=== PATIENT | male | born 1930 | race Caucasian/White ===

== ENCOUNTER 2016-09-30 06:27 | Day surgery (SDC) | payer MEDICARE, BC ==
[2016-09-30] MEDS ORDERED: Lidocaine 1% with EPINEPHrine 1:100,000 50 ML MDV ONE (06:38)
[2016-09-30] MEDS ORDERED: Dextrose 5%-Lactated Ringers 1,000 ML IV SCH (07:15)
[2016-09-30] MEDS ORDERED: Lidocaine 0.5% 50 ML SDV ONE (07:39)
[2016-09-30] MEDS ORDERED: Propofol 200 MG/20 ML SDV ONE (07:39)
[2016-09-30] MEDS ORDERED: fentaNYL 100 MCG/2 ML SDV ONE (07:39)
[2016-09-30] MEDS ORDERED: Midazolam 1 MG/ML 2 ML SDV ONE (07:39)
[2016-09-30] MEDS ORDERED: ceFAZolin 2 GM in Premix Bag 1 BAG IV ONE (07:45)
[2016-09-30] MEDS ORDERED: Ketorolac 60 MG/2 ML SDV ONE (08:34)
[2016-09-30 10:30] VITALS: BP 137/77
--- NOTE | 2016-10-07 10:52 | OR ---
DATE OF PROCEDURE: 09/30/2016 PREOPERATIVE DIAGNOSIS: Right carpal tunnel syndrome. POSTOPERATIVE DIAGNOSIS: Right carpal tunnel syndrome. OPERATIVE PROCEDURE: Right carpal tunnel release ([id number]). ANESTHESIA: IV block plus sedation. INDICATIONS FOR PROCEDURE: An 86-year-old with bilateral carpal tunnel syndrome, who presented with a left carpal tunnel release, now is to undergo the release on the right side. Potential risks of the procedure including bleeding, infection, injury to the median nerve and/or its branches, possible incomplete relief of symptoms were all gone over, and the patient wishes to proceed. DETAILS OF PROCEDURE: The patient was taken to the operating room and placed in supine position. An IV block was placed, affecting the right forearm and hand, after which those areas were prepped and draped, a standard carpal tunnel incision was made and carried down through the skin and subcutaneous tissue. The transverse carpal ligament was then divided for its length. This was quite thick and did retract under considerable tension upon its division. Care was taken to maintain an ulnar orientation with regard to the underlying median nerve. The median nerve, after completion of the division of the ligament, was noted to be intact. The subcutaneous tissue was then approximated with some 4-0 Vicryl stitch, and the skin with 5-0 Prolene stitch. Dressing was applied. The patient was taken to the recovery room in satisfactory condition. Jerry Ybarra MD /[id number]
== END 2016-09-30 10:30 | disposition home or self-care (01) ==
LOC: JP.SDS 06:27
PROVIDERS: ATTEND Surgery
DX: G56.01 Carpal tunnel syndrome, right upper limb (principal); Z88.0 Allergy status to penicillin; Z91.013 Allergy to seafood; N18.9 Chronic kidney disease, unspecified; Z95.1 Presence of aortocoronary bypass graft
CPT/HCPCS: 64721; J0690; J1885; J2250; J2704; J3010

== ENCOUNTER 2017-08-09 22:06 | Emergency (ER) | payer MEDICARE, BC ==
[2017-08-09] MEDS ORDERED: Aspirin 81 MG Tab.Chew PO ONE (22:49)
[2017-08-10 02:06] VITALS: BP 158/67
--- NOTE | 2017-08-10 02:07 | EDM.PDOC ---
ED HPI GENERAL MEDICAL PROBLEM - General Chief Complaint: Chest Pain Stated Complaint: CHEST PAIN Time Seen by Provider: 08/09/17 22:40 Source of Information: Reports: Patient, Family History Limitations: Reports: No Limitations - History of Present Illness INITIAL COMMENTS - FREE TEXT/NARRATIVE: PT ARRIVED WITH PAIN IN THE CHEST THAT STARTED JUST BEFORE SUPPER AND CONTINUED THROUGH OUT THE EVENING.tHE PAIN WAS IN THE 5 RANGE.hE WAS NOT NAUSEATED AND HE WAS NOT SWEATY OF SOB. Onset: Today Duration: Hour(s): Location: Reports: Chest Associated Symptoms: Reports: Chest Pain, Other (PT HAD VERY LITTLE PAIN ABOUT 5 MINUTES AFTER ARRIVAL. ) chest pain Pain Score (Numeric/FACES): 2 - Related Data Allergies Allergy/AdvReac Type Severity Reaction Status Date / Time Penicillins Allergy Rash Verified 08/09/17 22:22 fish meal Allergy Other Uncoded 08/09/17 22:22 Home Meds: Home Meds Acyclovir [Zovirax 5% Oint] 30 gm TP ASDIRECTED PRN 09/21/13 [History] Aspirin [Lite Coat Aspirin] 81 mg PO DAILY 09/21/13 [History] Cyanocobalamin (Vitamin B-12) [Vitamin B-12] 1,000 mcg IM ASDIRECTED 09/21/13 [ History] Dutasteride [Avodart] 0.5 mg PO DAILY 09/21/13 [History] Levothyroxine [Synthroid] 25 mcg PO ACBRK 09/21/13 [History] Metoprolol Succinate [Toprol XL] 25 mg PO DAILY 09/21/13 [History] atorvaSTATin [Lipitor] 40 mg PO BEDTIME 09/21/13 [History] Losartan [Cozaar] 100 mg PO DAILY 05/14/16 [History] Nitroglycerin [Nitrostat] 0.4 mg SL ASDIRECTED 05/14/16 [History] Gabapentin [Gabapentin] 600 mg PO BID 09/28/16 [History] Meloxicam [Meloxicam] 7.5 mg PO DAILY 09/28/16 [History] Tamsulosin HCl [Tamsulosin HCl] 0.4 mg PO DAILY 09/28/16 [History] Past Medical History HEENT History: Reports: Cataract, Impaired Vision Cardiovascular History: Reports: Hypertension, [place], Stents Gastrointestinal History: Reports: Hiatal Hernia Genitourinary History: Reports: BPH Musculoskeletal History: Reports: Arthritis Endocrine/Metabolic History: Reports: Other (See Below) Other Endocrine/Metabolic History: thyroid disease Oncologic (Cancer) History: Reports: Non-Hodgkin's Lymphoma Dermatologic History: Reports: Other (See Below) Other Dermatologic History: Patient has always had flushed/red cheeks - Infectious Disease History Infectious Disease History: Reports: Chicken Pox, Measles, Mumps, Shingles - Past Surgical History HEENT Surgical History: Reports: Cataract Surgery Cardiovascular Surgical History: Reports: Coronary Artery Bypass, Coronary Artery Stent, Other (See Below) Other Cardiovascular Surgeries/Procedures: x4 cardiac stents GI Surgical History: Reports: Hernia Repair/Other Musculoskeletal Surgical History: Reports: Knee Replacement, Other (See Below) Other Musculoskeletal Surgeries/Procedures:: right knee replacement Social & Family History - Tobacco Use Smoking Status *Q: Never Smoker Second Hand Smoke Exposure: No - Caffeine Use Caffeine Use: Reports: Coffee, Soda - Alcohol Use Days Per Week of Alcohol Use: 0 - Recreational Drug Use Recreational Drug Use: No ED ROS GENERAL - Review of Systems Review Of Systems: See Below Constitutional: Reports: No Symptoms HEENT: Reports: No Symptoms Respiratory: Reports: No Symptoms Cardiovascular: Reports: Chest Pain, Other ( pT HAD PAIN IN THE MIDDLE OSF HIS CHEST. ) Endocrine: Reports: No Symptoms GI/Abdominal: Reports: No Symptoms : Reports: No Symptoms Musculoskeletal: Reports: No Symptoms Skin: Reports: No Symptoms Neurological: Reports: No Symptoms ED EXAM, GENERAL - Physical Exam Exam: See Below Free Text/Narrative:: pT ARRIVED WITH ACUTE PAIN IN THE MID CHEST AREA. tHIS DID LAST ABOUT 4-5 HOURS. Exam Limited By: No Limitations General Appearance: Alert, Anxious Ears: Normal TMs Nose: Normal Inspection Throat/Mouth: Normal Inspection Head: Atraumatic Neck: Normal Inspection Respiratory/Chest: No Respiratory Distress Cardiovascular: Regular Rate, Rhythm, Other (PT HAD PAIN ACCROSS THE CHEST. ) GI/Abdominal: Soft, Non-Tender (Male) Exam: Deferred Rectal (Males) Exam: Deferred Back Exam: Normal Inspection Extremities: Normal Capillary Refill Neurological: Alert, Oriented, Normal Cognition Course - Vital Signs Last Recorded V/S: Last Vital Signs Temp 36.7 C 08/09/17 22:39 Pulse 48 L 08/10/17 02:05 Resp 14 08/10/17 00:04 BP 158/67 H 08/10/17 02:05 Pulse Ox 93 L 08/10/17 00:04 - Orders/Labs/Meds Orders: Active Orders 24 hr Category Date Time Status EKG Documentation Completion [RC] ASDIRECTED Care 08/09/17 22:30 Active Chest 1V Frontal [CR] Stat Exams 08/09/17 22:31 Taken EKG 12 Lead [EK] Routine Ther 08/09/17 22:30 Ordered Labs: Laboratory Tests 08/09/17 08/09/17 08/09/17 Range/Units 22:45 22:45 22:45 WBC 4.8 (4.5-11.0) K/uL RBC 4.22 L (4.30-5.90) M/uL Hgb 13.4 D (12.0-15.0) g/dL Hct 41.3 (40.0-54.0) % MCV 98 (80-98) fL MCH 32 H (27-31) pg MCHC 32 (32-36) % Plt Count 109 L (150-400) K/uL Neut % (Auto) 63 (36-66) % Lymph % (Auto) 24 (24-44) % Carter % (Auto) 8 H (2-6) % Eos % (Auto) 5 H (2-4) % Baso % (Auto) 1 (0-1) % Sodium 147 (140-148) mmol/L Potassium 4.4 (3.6-5.2) mmol/L Chloride 111 H (100-108) mmol/L Carbon Dioxide 27 (21-32) mmol/L Anion Gap 13.4 (5.0-14.0) mmol/L BUN 20 H (7-18) mg/dL Creatinine 1.8 H (0.8-1.3) mg/dL Est Cr Clr Drug Dosing 34.52 mL/min Estimated GFR (MDRD) 36 L (>60) Glucose 119 H (74-106) mg/dL Calcium 8.2 L (8.5-10.1) mg/dL Total Bilirubin 0.7 (0.2-1.0) mg/dL AST 24 (15-37) U/L ALT 37 (12-78) U/L Alkaline Phosphatase 98 (46-116) U/L Creatine Kinase 239 (39-308) U/L Troponin I 0.026 (0.000-0.056) ng/mL Total Protein 5.6 L (6.4-8.2) g/dL Albumin 3.2 L (3.4-5.0) g/dL Globulin 2.4 (2.3-3.5) g/dL Albumin/Globulin Ratio 1.3 (1.2-2.2) Urine Color Urine Appearance Urine pH (4.5-8.0) Ur Specific [place] (1.008-1.030) Urine Protein (NEGATIVE) mg/dL Urine Glucose (UA) (NEGATIVE) mg/dL Urine Ketones (NEGATIVE) mg/dL Urine Occult Blood (NEGATIVE) Urine Nitrite (NEGAITVE) Urine Bilirubin (NEGATIVE) Urine Urobilinogen (NORMAL) mg/dL Ur Leukocyte Esterase (NEGATIVE) Urine RBC (0-5) Urine WBC (0-5) Ur Epithelial Cells Amorphous Sediment Urine Bacteria Urine Mucus 08/09/17 08/10/17 Range/Units 22:50 01:34 WBC (4.5-11.0) K/uL RBC (4.30-5.90) M/uL Hgb (12.0-15.0) g/dL Hct (40.0-54.0) % MCV (80-98) fL MCH (27-31) pg MCHC (32-36) % Plt Count (150-400) K/uL Neut % (Auto) (36-66) % Lymph % (Auto) (24-44) % Carter % (Auto) (2-6) % Eos % (Auto) (2-4) % Baso % (Auto) (0-1) % Sodium (140-148) mmol/L Potassium (3.6-5.2) mmol/L Chloride (100-108) mmol/L Carbon Dioxide (21-32) mmol/L Anion Gap (5.0-14.0) mmol/L BUN (7-18) mg/dL Creatinine (0.8-1.3) mg/dL Est Cr Clr Drug Dosing mL/min Estimated GFR (MDRD) (>60) Glucose (74-106) mg/dL Calcium (8.5-10.1) mg/dL Total Bilirubin (0.2-1.0) mg/dL AST (15-37) U/L ALT (12-78) U/L Alkaline Phosphatase (46-116) U/L Creatine Kinase (39-308) U/L Troponin I 0.026 (0.000-0.056) ng/mL Total Protein (6.4-8.2) g/dL Albumin (3.4-5.0) g/dL Globulin (2.3-3.5) g/dL Albumin/Globulin Ratio (1.2-2.2) Urine Color Yellow Urine Appearance Clear Urine pH 7.0 (4.5-8.0) Ur Specific [place] 1.015 (1.008-1.030) Urine Protein Negative (NEGATIVE) mg/dL Urine Glucose (UA) Normal (NEGATIVE) mg/dL Urine Ketones Negative (NEGATIVE) mg/dL Urine Occult Blood Negative (NEGATIVE) Urine Nitrite Negative (NEGAITVE) Urine Bilirubin Negative (NEGATIVE) Urine Urobilinogen 1 (NORMAL) mg/dL Ur Leukocyte Esterase Negative (NEGATIVE) Urine RBC 0-5 (0-5) Urine WBC 0-5 (0-5) Ur Epithelial Cells Few Amorphous Sediment Not seen Urine Bacteria Few Urine Mucus Few Meds: Medications Discontinued Medications Generic Name Dose Route Start Last Admin Trade Name Freq PRN Reason Stop Dose Admin Aspirin 324 mg 08/09/17 22:49 08/09/17 23:16 Aspirin PO 08/09/17 22:50 324 mg ONETIME ONE Administration - Re-Assessments/Exams Free Text/Narrative Re-Assessment/Exam: 08/10/17 02:06 PT HAD A NORMAL TROP AND HIS OTHER LABS WERE GOOD 08/10/17 02:07 HE DOES HAVE AN ELEVATED CREATNINE AT 1.8. A REPEAT TROP WAS OBTAINED WHICH DID NOT RISE. HIS CHEST XRAY DID SHOW CHRONIC CHANGES ONLY, Departure - Departure Time of Disposition: 02:08 Disposition: Home, Self-Care 01 Condition: Fair Clinical Impression: Atypical chest pain, Coronary artery disease Referrals: Tyrone Whitley MD [Primary Care Provider] - Forms: ED Department Discharge Care Plan Goals: RTC FOR A LEXISCAN. , RTC IF CHEST PAIN SHOULD GET WORSE, FOLLOW UP WITH dR Whitley IN 4-5 DAYS. - My Orders Last 24 Hours: My Active Orders 08/09/17 22:30 EKG Documentation Completion [RC] ASDIRECTED EKG 12 Lead [EK] Routine 08/09/17 22:31 Chest 1V Frontal [CR] Stat - Assessment/Plan Last 24 Hours: My Active Orders 08/09/17 22:30 EKG Documentation Completion [RC] ASDIRECTED EKG 12 Lead [EK] Routine 08/09/17 22:31 Chest 1V Frontal [CR] Stat
--- NOTE | 2017-08-10 08:43 | CR ---
Chest 1V Frontal INDICATION: sob COMPARISON: None FINDINGS: AP portable chest. Cardiomegaly. Sternotomy. No infiltrates, pleural effusions, or signs of pulmonary edema.
== END 2017-08-10 02:25 | disposition home or self-care (01) ==
LOC: JP.ED 22:06
DX: I25.10 Atherosclerotic heart disease of native coronary artery without angina pectoris (principal); I10 Essential (primary) hypertension; Z88.0 Allergy status to penicillin; Z91.013 Allergy to seafood; Z79.82 Long term (current) use of aspirin; Z79.899 Other long term (current) drug therapy
CPT/HCPCS: 36415; 71045; 80053; 81001; 82550; 84484; 85025; 93005; 99285; A9270; 93010; 99284

== ENCOUNTER 2019-05-03 07:25 | Day surgery (SDC) | payer MEDICARE, BC ==
[2019-05-03] MEDS ORDERED: Sodium Chloride 0.9% 10 ML Syringe FLUSH PRN (08:00)
[2019-05-03 09:11] VITALS: BP 155/82; PULSE 50
--- NOTE | 2019-05-03 14:31 | OR ---
DATE OF PROCEDURE: 05/03/2019 SURGEON: Birgit Boudreaux MD POSTOPERATIVE CARE: Postoperative care will be provided mainly at the [address] [place] [address] [facility] in conjunction with [facility]. PREOPERATIVE DIAGNOSIS: Cataract, left eye. POSTOPERATIVE DIAGNOSIS: Cataract, left eye. PROCEDURE: Phacoemulsification with intraocular lens placement, left eye. ANESTHESIA: Topical and intracameral. ESTIMATED BLOOD LOSS: Minimal. COMPLICATIONS: None. PATHOLOGY SPECIMENS: None. SURGICAL FINDINGS: None. INDICATION FOR PROCEDURE: The patient is an 88-year-old male with history of a visually significant cataract in the left eye, which interfered with activities of daily living. This consisted of a nuclear sclerosis cataract. Following careful discussion of the risks, benefits and alternatives to cataract extraction with intraocular lens placement including blindness and , the patient elected to proceed, and informed, written consent was obtained prior to the procedure. DESCRIPTION OF THE PROCEDURE: The patient was previously identified, and a christiano placed above the left eye. All sources, including the patient, indicated that the left eye was the correct eye. The patient was subsequently taken to the operating room where standard monitors were applied. The patient was then prepped and draped in the usual sterile fashion for ophthalmic surgery. Attention was first directed at the 12 o'clock position where a paracentesis port was fashioned. Shugar solution followed by Viscoat was instilled into the eye. Attention was then directed to the 8:30 position where a triplanar incision was made in a near-clear manner using a keratome. A continuous capsulorrhexis was then made using a combination of the cystotome and Utrata forceps. Hydrodissection was achieved using a balanced salt solution, and the lens rotated nicely. Phacoemulsification was then done using a modified [id number] technique without complication. Phaco time was 6.0 CDE. The remaining cortex was removed using the irrigation/aspiration handpiece. Provisc was then instilled into the eye. A Technis lens, model IL0421, at 21.5 diopters was then placed in the capsular bag using an [place] injector. The remaining viscoelastic was removed using the irrigation/aspiration forceps. All wounds were then checked and found to be watertight. The lid speculum and drapes were removed. Maxitrol ointment was placed in the patient's left eye, and the eye was shielded. The patient tolerated the procedure well. The patient was instructed to follow up tomorrow. All needle and sponge counts were correct at the end of the procedure. Birgit Boudreaux MD /[id number]
== END 2019-05-03 09:30 | disposition home or self-care (01) ==
LOC: JP.SDS 07:25
PROVIDERS: ATTEND Ophthalmology
DX: H25.12 Age-related nuclear cataract, left eye (principal); I25.10 Atherosclerotic heart disease of native coronary artery without angina pectoris; I12.9 Hypertensive chronic kidney disease with stage 1 through stage 4 chronic kidney disease, or unspecified chronic kidney disease; N18.9 Chronic kidney disease, unspecified; E03.9 Hypothyroidism, unspecified; Z88.0 Allergy status to penicillin; Z95.1 Presence of aortocoronary bypass graft
CPT/HCPCS: 66984; V2632

== ENCOUNTER 2019-09-01 13:04 | Emergency (ER) | payer MEDICARE, BC ==
[2019-09-01 13:18] VITALS: BP 138/72; PULSE 60
--- NOTE | 2019-09-01 13:42 | EDM.PDOC ---
ED HPI GENERAL MEDICAL PROBLEM - General Chief Complaint: General Stated Complaint: cough, not feeling well Time Seen by Provider: 09/01/19 13:25 Source of Information: Reports: Patient, Old Records, RN History Limitations: Reports: No Limitations - History of Present Illness INITIAL COMMENTS - FREE TEXT/NARRATIVE: 88 yo male here with cold sx's for several days. No SOB. Cough rarely productive of yellow sputum(mornings only). Feels a little weak. Take Coricidin without relief. No facial pressure. No body aches. Clear rhinorrhea. Onset: Gradual Duration: Day(s):, Constant Location: Reports: Generalized Quality: Reports: Other (no pain reported) Severity: Mild Improves with: Reports: None Worsens with: Reports: None Context: Reports: Other (see HPI) Associated Symptoms: Reports: Cough (infrequent), Malaise. Denies: Chest Pain, Fever/Chills, Headaches, Rash, Shortness of Breath Treatments GLOBAL TECHNICAL WRITER: Reports: Other (see below) (Coricidin) - Related Data Allergies Allergy/AdvReac Type Severity Reaction Status Date / Time Penicillins Allergy Rash Verified 09/01/19 13:18 Home Meds: Home Meds Acyclovir [Zovirax 5% Oint] 30 gm TP ASDIRECTED PRN 09/21/13 [History] Aspirin [Lite Coat Aspirin] 81 mg PO DAILY 09/21/13 [History] Cyanocobalamin (Vitamin B-12) [Vitamin B-12] 1,000 mcg IM ASDIRECTED 09/21/13 [ History] Metoprolol Succinate [Toprol XL] 25 mg PO DAILY 09/21/13 [History] atorvaSTATin [Lipitor] 40 mg PO BEDTIME 09/21/13 [History] Losartan [Cozaar] 100 mg PO DAILY 05/14/16 [History] Nitroglycerin [Nitrostat] 0.4 mg SL ASDIRECTED 05/14/16 [History] Gabapentin 300 mg PO QID 09/28/16 [History] Tamsulosin HCl 0.4 mg PO DAILY 09/28/16 [History] Fluticasone Propionate [Flonase] 16 gm .XX DAILY PRN 07/12/18 [History] Furosemide 40 mg PO DAILY 07/12/18 [History] Past Medical History HEENT History: Reports: Allergic Rhinitis, Cataract, Hard of Hearing, Impaired Vision, Other (See Below) Other HEENT History: retinal issue in right eye Cardiovascular History: Reports: Bypass, CAD, High Cholesterol, Hypertension, [place] , Stents, Other (See Below) Other Cardiovascular History: bradycardia Respiratory History: Reports: Sleep Apnea Other Respiratory History: cpap Gastrointestinal History: Reports: None Genitourinary History: Reports: BPH, Renal Calculus Musculoskeletal History: Reports: Arthritis Neurological History: Reports: Neuropathy, Peripheral Endocrine/Metabolic History: Reports: Hypothyroidism, Obesity/BMI 30+, Other ( See Below) Other Endocrine/Metabolic History: thyroid disease Hematologic History: Reports: B12 Deficiency Oncologic (Cancer) History: Reports: Lymphoma, 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 Dermatologic History: Reports: Other (See Below) Other Dermatologic History: Patient has always had flushed/red cheeks - Infectious Disease History Infectious Disease History: Reports: Chicken Pox, Measles, Mumps - Past Surgical History Head Surgeries/Procedures: Reports: None HEENT Surgical History: Reports: Adenoidectomy, Cataract Surgery, Tonsillectomy Cardiovascular Surgical History: Reports: Coronary Artery Bypass, Coronary Artery Stent, Other (See Below) Other Cardiovascular Surgeries/Procedures: x4 cardiac stents Respiratory Surgical History: Reports: None GI Surgical History: Reports: Colonoscopy Male Surgical History: Reports: None Endocrine Surgical History: Reports: None Neurological Surgical History: Reports: None Musculoskeletal Surgical History: Reports: Carpal Tunnel, Knee Replacement, Other (See Below) Other Musculoskeletal Surgeries/Procedures:: right knee replacement, right elbow Oncologic Surgical History: Reports: Other (See Below) Other Oncologic Surgeries/Procedures: skin biopsy Dermatological Surgical History: Reports: None Social & Family History - Family History Family Medical History: Noncontributory - Tobacco Use Smoking Status *Q: Never Smoker Second Hand Smoke Exposure: No - Caffeine Use Caffeine Use: Reports: Coffee, Soda - Recreational Drug Use Recreational Drug Use: No ED ROS GENERAL - Review of Systems Review Of Systems: See Below Constitutional: Reports: Malaise. Denies: Fever, Chills, Diaphoresis HEENT: Reports: Rhinitis, Other (chronic hearing deficit) Respiratory: Reports: Cough (rare), Sputum (in mornings occasionally). Denies: Shortness of Breath, Wheezing, Pleuritic Chest Pain, Hemoptysis Cardiovascular: Reports: No Symptoms Endocrine: Reports: No Symptoms GI/Abdominal: Reports: No Symptoms : Reports: No Symptoms Musculoskeletal: Reports: No Symptoms Skin: Reports: No Symptoms Neurological: Reports: No Symptoms ED EXAM, GENERAL - Physical Exam Exam: See Below Exam Limited By: No Limitations General Appearance: Alert, WD/WN, No Apparent Distress Eye Exam: Bilateral Eye: Normal Inspection, PERRL Ears: Normal External Exam, Normal Canal, Hearing Grossly Normal, Normal TMs, Hearing Loss (chronic) Ear Exam: Bilateral Ear: Auricle Normal, Canal Normal, TM normal Nose: Normal Inspection, No Blood, Clear Rhinorrhea Throat/Mouth: Normal Inspection, Normal Lips, Normal Oropharynx, Normal Voice, No Airway Compromise Head: Atraumatic, Normocephalic Neck: Normal Inspection Respiratory/Chest: No Respiratory Distress, Lungs Clear, Normal Breath Sounds, No Accessory Muscle Use Cardiovascular: Regular Rate, Rhythm, No Edema GI/Abdominal: Normal Bowel Sounds, Soft, Non-Tender, No Distention Back Exam: Normal Inspection. No: CVA Tenderness (R), CVA Tenderness (L) Extremities: Normal Inspection, Normal Range of Motion, Non-Tender, No Pedal Edema Neurological: Alert, Oriented, CN II-XII Intact, Normal Cognition, No Motor/ Sensory Deficits Psychiatric: Normal Affect, Normal Mood Skin Exam: Warm, Dry, Intact, Normal Color, No Rash Course - Vital Signs Last Recorded V/S: Last Vital Signs Temp 36.3 C 09/01/19 13:20 Pulse 60 09/01/19 13:20 Resp 16 09/01/19 13:20 BP 138/72 09/01/19 13:20 Pulse Ox 95 09/01/19 13:20 - Orders/Labs/Meds Labs: Laboratory Tests 09/01/19 Range/Units 13:43 WBC 7.7 (4.5-11.0) K/uL RBC 4.99 (4.30-5.90) M/uL Hgb 15.2 H (12.0-15.0) g/dL Hct 49.2 (40.0-54.0) % MCV 99 H (80-98) fL MCH 31 (27-31) pg MCHC 31 L (32-36) % Plt Count 121 L (150-400) K/uL Departure - Departure Time of Disposition: 14:16 Disposition: Home, Self-Care 01 Condition: Good Clinical Impression: Viral URI - Discharge Information *PRESCRIPTION DRUG MONITORING PROGRAM REVIEWED*: No *COPY OF PRESCRIPTION DRUG MONITORING REPORT IN PATIENT SURYA: No Referrals: Tyrone Whitley MD [Primary Care Provider] - Forms: ED Department Discharge Additional Instructions: Continue your Coricidin. Drink ample fluids. Rest. Chicken soup may help. Recheck with your doctor as needed. Your CBC today was normal. Sepsis Event Note - Evaluation Sepsis Screening Result: No Definite Risk - Focused Exam Vital Signs: Vital Signs Temp Pulse Resp BP Pulse Ox 09/01/19 13:20 36.3 C 60 16 138/72 95 09/01/19 13:17 36.3 C 60 16 138/72 95 Date Exam was Performed: 09/01/19 Time Exam was Performed: 14:16
== END 2019-09-01 14:37 | disposition home or self-care (01) ==
LOC: JP.ED 13:04
DX: J06.9 Acute upper respiratory infection, unspecified (principal)
CPT/HCPCS: 36415; 85027; 99284